=== PATIENT | male | born 1965 | race African-American/Black ===

== ENCOUNTER 2019-05-17 13:14 | Emergency (ER) | payer SELFPAY ==
[~2019-05-17] VITALS: Ht 170.2 cm; Wt 110.0 kg
[2019-05-17 15:44] VITALS: BP 154/96
== END 2019-05-17 18:39 | disposition home or self-care (01) ==
LOC: ER 13:14
DX: M25.531 Pain in right wrist (principal); I10 Essential (primary) hypertension; W22.8XXA Striking against or struck by other objects, initial encounter; Y93.89 Activity, other specified; Y92.89 Other specified places as the place of occurrence of the external cause
CPT/HCPCS: 73110; 99283

== ENCOUNTER 2021-11-15 09:13 | Emergency (ER) | payer MEDICAID ==
[~2021-11-15] VITALS: Ht 170.2 cm; Wt 105.0 kg
[2021-11-15 09:15] VITALS: BP 163/99
[2021-11-15] MEDS ORDERED: IBUPROFEN 600MG TABLET PO ONE (09:45)
== END 2021-11-15 10:36 | disposition home or self-care (01) ==
LOC: ER 09:13
DX: M25.512 Pain in left shoulder (principal); I49.8 Other specified cardiac arrhythmias; E11.9 Type 2 diabetes mellitus without complications; I10 Essential (primary) hypertension
CPT/HCPCS: 73030; 93005; 99283

== ENCOUNTER 2022-01-10 08:11 | Inpatient (IN) | payer MEDICAID ==
[~2022-01-10] VITALS: Ht 170.2 cm; Wt 115.0 kg
[2022-01-10] MEDS ORDERED: MORPHINE SULFATE 4 MG/ML CPJ (NOT FOR IM USE) IV STA (08:16)
[2022-01-10] MEDS ORDERED: ONDANSETRON HCL 4MG/2ML INJ IV ONE (08:30)
[2022-01-10] MEDS ORDERED: IOHEXOL-350 100 ML BOTTLE ONE (09:12)
[2022-01-10 09:13] LABS: BASOPHILS % 0.7 % (0.0-2.0); EOSINOPHILS % 11.2 % (0.0-5.0); HEMOGLOBIN. 13.7 g/dL (14.0-18.0); LYMPHOCYTES % 29.8 % (20.0-50.0); MEAN CORPUSCULAR HEMOGLOBIN 29.1 pg (28.0-32.0); MEAN CORPUSCULAR VOLUME 83.1 fL (80.0-94.0); MEAN PLATELET VOLUME 8.2 fl (7.4-10.4); MONOCYTES % 4.8 % (2.0-8.0); NEUTROPHILS % 53.5 % (40.0-76.0); PLATELET 226 x1000/uL (130-400); RED CELL DISTRIBUTION WIDTH 13.4 % (11.6-14.6)
[2022-01-10 09:21] LABS: CHLORIDE 104 mEq/L (98-107)
[2022-01-10] MEDS ORDERED: ASPIRIN 325MG EC TABLET PO ONE (11:45)
[2022-01-10] MEDS ORDERED: ENOXAPARIN 80MG/0.8ML SYR SUBCUT ONE (13:15)
[2022-01-10] MEDS ORDERED: ONDANSETRON HCL 4MG/2ML INJ IV PRN (13:30)
[2022-01-10] MEDS ORDERED: KETOROLAC 15MG/ML VIAL IV PRN (13:30)
[2022-01-10] MEDS ORDERED: IPRATROPIUM/ALBUTEROL 0.5-3(2.5)MG/3ML NEB NEB PRN (13:30)
[2022-01-10] MEDS ORDERED: DOCUSATE SODIUM 100MG CAPSULE PO PRN (13:30)
[2022-01-10] MEDS ORDERED: NITROGLYCERIN 0.4MG TABLET SL SL PRN (13:30)
[2022-01-10] MEDS ORDERED: MAGNESIUM/ALUMINUM HYDROXIDE/SIMETHICONE 30ML UDC PO PRN (13:30)
[2022-01-10] MEDS ORDERED: ACETAMINOPHEN 325MG TABLET PO PRN ×2 (13:30)
[2022-01-10] MEDS ORDERED: GUAIFENESIN 200MG/10ML SUGAR FREE UDC PO PRN (13:30)
[2022-01-10] MEDS ORDERED: ZOLPIDEM TARTRATE 5MG TABLET PO PRN (13:30)
[2022-01-10] MEDS ORDERED: CLONIDINE 0.1MG TABLET PO PRN (13:30)
[2022-01-10 14:21] LABS: CREATINE KINASE MB FRACTION 8.2 ng/mL (0.5-3.6)
[2022-01-10 14:27] LABS: ETHANOL BLOOD < 10 mg/dL; HDL CHOLESTEROL 30 mg/dL (40-59); LDL CHOLESTEROL 151 mg/dL (5-100)
[2022-01-10 14:50] LABS: FOLIC ACID (FOLATE) SERUM 13.8 ng/mL (>5.38)
[2022-01-10 14:55] LABS: TOTAL IRON BINDING CAPACITY 363 ug/dL (250-450)
[2022-01-10] MEDS ORDERED: NALOXONE HCL 0.4MG/ML VIAL IV PRN (15:30)
[2022-01-10] MEDS ORDERED: MORPHINE SULFATE 2 MG/ML CPJ (NOT FOR IM USE) IV PRN (15:30)
[2022-01-10 17:08] VITALS: BP 152/86
[2022-01-10 17:17] VITALS: BP 152/86
[2022-01-10 20:00] VITALS: BP 180/53
[2022-01-10 20:18] LABS: PARTIAL THROMBOPLASTIN TIME 32.6 sec (23.4-31.0); PROTHROMBIN TIME 10.9 sec (9.6-11.0)
[2022-01-10] MEDS ORDERED: HEPARIN 5000 UNITS/ML VIAL IV SCH (21:00)
[2022-01-10] MEDS ORDERED: HEPARIN 25,000 UNITS PREMIX 250 ML IV PRN (21:30)
[2022-01-10] MEDS: FAMOTIDINE 20MG TABLET PO SCH (21:57)
[2022-01-10] MEDS: ATORVASTATIN CALCIUM 40MG TABLET PO SCH (21:58)
[2022-01-10 22:00] VITALS: BP 124/76
[2022-01-10] MEDS: MORPHINE SULFATE 2 MG/ML CPJ (NOT FOR IM USE) IV PRN (22:31)
[2022-01-11] VITALS (19 sets, daily range): BP systolic 83–144; BP diastolic 32–94
[2022-01-11 02:39] LABS: CREATINE KINASE MB FRACTION 54.4 ng/mL (0.5-3.6)
[2022-01-11] MEDS: MORPHINE SULFATE 2 MG/ML CPJ (NOT FOR IM USE) IV PRN (02:58)
[2022-01-11] MEDS ORDERED: HEPARIN 5000 UNITS/ML VIAL IV PRN ×2 (03:00)
[2022-01-11] MEDS ORDERED: SODIUM CHLORIDE 0.9% 250 ML IV SCH (03:15)
[2022-01-11 07:01] LABS: BASOPHILS % 0.4 % (0.0-2.0); EOSINOPHILS % 2.3 % (0.0-5.0); HEMATOCRIT. 38.5 % (42.0-52.0); HEMOGLOBIN. 13.4 g/dL (14.0-18.0); LYMPHOCYTES % 12.2 % (20.0-50.0); MEAN CORPUSCULAR VOLUME 83.7 fL (80.0-94.0); MEAN PLATELET VOLUME 8.8 fl (7.4-10.4); MONOCYTES % 5.7 % (2.0-8.0); NEUTROPHILS % 79.4 % (40.0-76.0); PLATELET 258 x1000/uL (130-400); RED CELL DISTRIBUTION WIDTH 13.9 % (11.6-14.6)
[2022-01-11] MEDS ORDERED: IODIXANOL 320MG/ML 100 ML BOTTLE IV ONE ×2 (07:27→08:44)
[2022-01-11] MEDS ORDERED: LIDOCAINE HCL 1% 20ML VIAL (Pyxis) INJ ONE (07:28)
[2022-01-11] MEDS ORDERED: VERAPAMIL HCL 2.5 MG/1 ML 2ML VIAL IV ONE (07:28)
[2022-01-11] MEDS ORDERED: MIDAZOLAM HCL 2 MG/2 ML VIAL ONE (07:28)
[2022-01-11] MEDS ORDERED: FENTANYL CITRATE/PF 50MCG/ML 2ML VIAL ONE (07:28)
[2022-01-11] MEDS ORDERED: DIPHENHYDRAMINE 50MG/ML VIAL ONE (07:29)
[2022-01-11 07:34] LABS: CHLORIDE 107 mEq/L (98-107); PHOSPHORUS 3.1 mg/dL (2.5-4.9)
[2022-01-11] MEDS ORDERED: ATROPINE SULFATE 1MG/10ML SYR ONE (08:00)
[2022-01-11] MEDS ORDERED: IOHEXOL-300 100 ML BOTTLE ONE (08:51)
[2022-01-11] MEDS ORDERED: ENOXAPARIN 40MG/0.4ML SYR SUBCUT SCH (09:00)
[2022-01-11] MEDS ORDERED: ASPIRIN 325MG EC TABLET PO SCH (09:00)
[2022-01-11] MEDS ORDERED: ASPIRIN 81MG EC TABLET PO SCH (09:00)
[2022-01-11] MEDS ORDERED: CLOPIDOGREL 75MG TABLET ONE (09:04)
[2022-01-11] MEDS ORDERED: ASPIRIN 325MG TABLET ONE (09:04)
[2022-01-11] MEDS ORDERED: DEXTROSE 50% WATER 50ML SYRINGE IV PRN (09:30)
[2022-01-11] MEDS ORDERED: POTASSIUM CHLORIDE 20MEQ/PACKET PO NR (09:30)
[2022-01-11] MEDS ORDERED: HEPARIN SODIUM 1,000 UNIT/1ML VIAL IV ONE (09:41)
[2022-01-11] MEDS ORDERED: NITROGLYCERIN 50MCG/ML 10ML VIAL (CATH LAB) IV ONE (09:41)
[2022-01-11] MEDS ORDERED: NICARDIPINE 100MCG/ML 10ML VIAL (CATH LAB) IV ONE (09:41)
[2022-01-11] MEDS ORDERED: ATROPINE SULFATE 1MG/10ML SYR IV PRN (09:45)
[2022-01-11] MEDS: FAMOTIDINE 20MG TABLET PO SCH ×2 (10:08→21:16)
[2022-01-11] MEDS: SODIUM CHLORIDE 0.45% 500 ML IV SCH ×2 (10:10→16:25)
[2022-01-11] MEDS: INSULIN LISPRO 100 UNITS/ML SUBCUT SCH ×3 (12:38→21:00)
[2022-01-11] MEDS: BLOOD SUGAR DIAGNOSTIC STRIP TEST SCH ×3 (12:38→21:18)
[2022-01-11 19:03] LABS: *AMPHETAMINES SCREEN URINE NEGATIVE (NEGATIVE); *BARBITURATES SCREEN URINE NEGATIVE (NEGATIVE); *BENZODIAZEPINES SCREEN URINE PRESUMTIVE POSITIVE (NEGATIVE); *COCAINE SCREEN URINE NEGATIVE (NEGATIVE); CANNABINOID URINE SCREEN NEGATIVE (NEGATIVE); METHADONE URINE SCREEN NEGATIVE (NEGATIVE); OPIATES URINE SCREEN PRESUMTIVE POSITIVE (NEGATIVE); PHENCYCLIDINE URINE SCREEN NEGATIVE (NEGATIVE)
[2022-01-11] MEDS: ATORVASTATIN CALCIUM 40MG TABLET PO SCH (21:16)
[2022-01-11] MEDS ORDERED: SODIUM CHLORIDE 0.45% 500 ML IV SCH ×2 (23:45)
[2022-01-12] VITALS (9 sets, daily range): BP systolic 94–147; BP diastolic 39–88
[2022-01-12] MEDS ORDERED: SODIUM CHLORIDE 0.45% 500 ML IV ONE (00:15)
[2022-01-12] MEDS ORDERED: SODIUM CHLORIDE 0.45% 500 ML IV SCH (00:15)
[2022-01-12 05:50] LABS: BASOPHILS % 0.3 % (0.0-2.0); EOSINOPHILS % 2.6 % (0.0-5.0); HEMATOCRIT. 35.7 % (42.0-52.0); HEMOGLOBIN. 12.2 g/dL (14.0-18.0); LYMPHOCYTES % 22.5 % (20.0-50.0); MEAN CORPUSCULAR HEMOGLOBIN 28.5 pg (28.0-32.0); MEAN CORPUSCULAR VOLUME 83.5 fL (80.0-94.0); MEAN PLATELET VOLUME 8.9 fl (7.4-10.4); MONOCYTES % 7.6 % (2.0-8.0); PLATELET 230 x1000/uL (130-400); RED BLOOD CELL COUNT 4.28 mill/uL (4.7-6.1); RED CELL DISTRIBUTION WIDTH 13.9 % (11.6-14.6)
[2022-01-12 05:56] LABS: CHLORIDE 108 mEq/L (98-107)
[2022-01-12 06:01] LABS: PHOSPHORUS 3.2 mg/dL (2.5-4.9)
[2022-01-12] MEDS: BLOOD SUGAR DIAGNOSTIC STRIP TEST SCH ×2 (06:54→12:56)
[2022-01-12] MEDS: INSULIN LISPRO 100 UNITS/ML SUBCUT SCH ×2 (08:00→12:56)
[2022-01-12] MEDS: FAMOTIDINE 20MG TABLET PO SCH (08:50)
[2022-01-12] MEDS ORDERED: CLOPIDOGREL 75MG TABLET PO SCH (09:00)
[2022-01-12] MEDS ORDERED: ASPIRIN 81MG TABLET PO SCH (09:00)
[2022-01-12] MEDS ORDERED: POTASSIUM CHLORIDE 20MEQ/PACKET PO SCH (09:30)
[2022-01-12] MEDS ORDERED: KCL 20MEQ/100ML PREMIX 100 ML IV SCH (11:00)
== END 2022-01-12 15:31 | disposition home or self-care (01) | DRG 174 ==
LOC: ER 08:24 → 5EST 13:13 → EDBEDREQ 13:16 → ENRESERV 14:50
PROVIDERS: ADMIT Internal Medicine; ATTEND Internal Medicine
PROC: 027034Z Dilation of Coronary Artery, One Artery with Drug-eluting Intraluminal Device, Percutaneous Approach (ICD-10-PCS; principal; 2022-01-11)
PROC: B54BZZA Ultrasonography of Right Lower Extremity Veins, Guidance (ICD-10-PCS; 2022-01-11)
PROC: B41FYZZ Fluoroscopy of Right Lower Extremity Arteries using Other Contrast (ICD-10-PCS; 2022-01-11)
PROC: B211YZZ Fluoroscopy of Multiple Coronary Arteries using Other Contrast (ICD-10-PCS; 2022-01-11)
PROC: 4A023N7 Measurement of Cardiac Sampling and Pressure, Left Heart, Percutaneous Approach (ICD-10-PCS; 2022-01-11)
DX: I21.4 Non-ST elevation (NSTEMI) myocardial infarction (principal); N17.0 Acute kidney failure with tubular necrosis; E11.9 Type 2 diabetes mellitus without complications; E66.9 Obesity, unspecified; F17.210 Nicotine dependence, cigarettes, uncomplicated; I10 Essential (primary) hypertension; J44.9 Chronic obstructive pulmonary disease, unspecified; R00.1 Bradycardia, unspecified; Z20.822 Contact with and (suspected) exposure to COVID-19; E87.6 Hypokalemia; E78.5 Hyperlipidemia, unspecified; I25.10 Atherosclerotic heart disease of native coronary artery without angina pectoris; Z68.39 Body mass index [BMI] 39.0-39.9, adult; Q24.5 Malformation of coronary vessels
CPT/HCPCS: 36415; 71045; 71275; 74177; 80048; 80053; 80061; 80305; 80320; 82550; 82553; 82607; 82746; 82962; 83036; 83540; 83550; 83735; 83880; 84100; 84443; 84484; 85025; 85347; 87426; 92928; 93005; 93306; 93458; 93970; 99285; C1725; C1760; C1769; C1874; C1887; C1893; J0461; J1200; J1644; J1650; J1885; J2250; J2270; J2405; J3010; J3480; J3490; Q9967; G0480

== ENCOUNTER 2022-04-14 13:40 | Inpatient (IN) | payer MEDICAID ==
[~2022-04-14] VITALS: Ht 170.2 cm; Wt 96.6 kg
[2022-04-14 14:26] LABS: EOSINOPHILS % 12.2 % (0.0-5.0); HEMOGLOBIN. 13.5 g/dL (14.0-18.0); LYMPHOCYTES % 34.5 % (20.0-50.0); MEAN CORPUSCULAR HEMOGLOBIN 27.9 pg (28.0-32.0); MEAN CORPUSCULAR VOLUME 82.5 fL (80.0-94.0); MEAN PLATELET VOLUME 8.1 fl (7.4-10.4); MONOCYTES % 5.7 % (2.0-8.0); NEUTROPHILS % 46.6 % (40.0-76.0); PLATELET 265 x1000/uL (130-400); RED BLOOD CELL COUNT 4.86 mill/uL (4.7-6.1); RED CELL DISTRIBUTION WIDTH 14.4 % (11.6-14.6)
[2022-04-14 14:36] LABS: CHLORIDE 106 mEq/L (98-107)
[2022-04-14 14:45] LABS: ETHANOL BLOOD < 10 mg/dL
[2022-04-14] MEDS ORDERED: MORPHINE SULFATE 4 MG/ML CPJ (NOT FOR IM USE) IV NR (15:30)
[2022-04-14] MEDS ORDERED: ONDANSETRON HCL 4MG/2ML INJ IV NR (15:30)
[2022-04-14] MEDS ORDERED: ASPIRIN 325MG EC TABLET PO ONE (16:00)
[2022-04-14 17:25] LABS: *AMPHETAMINES SCREEN URINE NEGATIVE (NEGATIVE); *BARBITURATES SCREEN URINE NEGATIVE (NEGATIVE); *BENZODIAZEPINES SCREEN URINE NEGATIVE (NEGATIVE); *COCAINE SCREEN URINE NEGATIVE (NEGATIVE); CANNABINOID URINE SCREEN NEGATIVE (NEGATIVE); METHADONE URINE SCREEN NEGATIVE (NEGATIVE); OPIATES URINE SCREEN PRESUMTIVE POSITIVE (NEGATIVE); PHENCYCLIDINE URINE SCREEN NEGATIVE (NEGATIVE)
[2022-04-14] MEDS ORDERED: MORPHINE SULFATE 4 MG/ML CPJ (NOT FOR IM USE) IV ONE (19:45)
[2022-04-14] MEDS ORDERED: AMLODIPINE 10MG TABLET PO ONE (20:30)
[2022-04-14] MEDS ORDERED: ENOXAPARIN 40MG/0.4ML SYR SUBCUT NR (23:30)
[2022-04-14] MEDS ORDERED: ASPIRIN 81MG TABLET PO SCH (23:30)
[2022-04-14] MEDS ORDERED: METOPROLOL SUCCINATE 50MG ER TABLET PO SCH (23:30)
[2022-04-14] MEDS ORDERED: HYDROCODONE/ACETAMINOPHEN 5/325MG TABLET PO PRN (23:35)
[2022-04-14] MEDS ORDERED: NITROGLYCERIN 0.4MG TABLET SL SL PRN (23:39)
[2022-04-14] MEDS ORDERED: CLONIDINE 0.1MG TABLET PO PRN (23:39)
[2022-04-14] MEDS ORDERED: METOPROLOL TARTRATE 50MG TABLET PO SCH (23:41)
[2022-04-14 23:47] VITALS: BP 222/113
[2022-04-14] MEDS: HYDROCODONE/ACETAMINOPHEN 10/325MG TABLET PO PRN (23:47)
[2022-04-14] MEDS: LISINOPRIL 20MG TABLET PO SCH (23:53)
[2022-04-15] VITALS (9 sets, daily range): BP systolic 99–222; BP diastolic 56–158
[2022-04-15] MEDS: ASPIRIN 81MG TABLET PO SCH ×2 (00:05→08:02)
[2022-04-15] MEDS: HYDROCODONE/ACETAMINOPHEN 10/325MG TABLET PO PRN ×2 (08:02→21:12)
[2022-04-15] MEDS: LISINOPRIL 20MG TABLET PO SCH (08:02)
[2022-04-15] MEDS ORDERED: DEXTROSE 50% WATER 50ML SYRINGE IV PRN ×2 (10:15)
[2022-04-15] MEDS ORDERED: ACETAMINOPHEN 325MG TABLET PO PRN (10:15)
[2022-04-15] MEDS ORDERED: MAGNESIUM/ALUMINUM HYDROXIDE/SIMETHICONE 30ML UDC PO PRN (10:15)
[2022-04-15] MEDS ORDERED: ONDANSETRON HCL 4MG/2ML INJ IV PRN (10:15)
[2022-04-15] MEDS: ENOXAPARIN 30MG/0.3ML SYR SUBCUT SCH ×2 (10:29→21:13)
[2022-04-15] MEDS ORDERED: NALOXONE HCL 0.4MG/ML VIAL IV PRN (10:30)
[2022-04-15] MEDS: CLOPIDOGREL 75MG TABLET PO SCH (11:18)
[2022-04-15] MEDS: BLOOD SUGAR DIAGNOSTIC STRIP TEST SCH ×3 (12:20→21:00)
[2022-04-15] MEDS: INSULIN LISPRO 100 UNITS/ML SUBCUT SCH ×3 (12:50→21:00)
[2022-04-15 16:38] LABS: CREATINE KINASE MB FRACTION 1.4 ng/mL (0.5-3.6)
[2022-04-15] MEDS: ATORVASTATIN CALCIUM 40MG TABLET PO SCH (21:10)
[2022-04-15 23:19] LABS: CREATINE KINASE MB FRACTION 1.5 ng/mL (0.5-3.6)
[2022-04-16] VITALS (7 sets, daily range): BP systolic 144–171; BP diastolic 68–97
[2022-04-16] MEDS: HYDROCODONE/ACETAMINOPHEN 10/325MG TABLET PO PRN ×4 (04:34→21:03)
[2022-04-16] MEDS: BLOOD SUGAR DIAGNOSTIC STRIP TEST SCH ×4 (07:20→21:11)
[2022-04-16 07:30] LABS: HEMATOCRIT. 39.2 % (42.0-52.0); HEMOGLOBIN. 13.4 g/dL (14.0-18.0); MEAN CORPUSCULAR HEMOGLOBIN 28.2 pg (28.0-32.0); MEAN CORPUSCULAR VOLUME 82.7 fL (80.0-94.0); MEAN PLATELET VOLUME 8.4 fl (7.4-10.4); PLATELET 247 x1000/uL (130-400); RED BLOOD CELL COUNT 4.74 mill/uL (4.7-6.1); RED CELL DISTRIBUTION WIDTH 14.4 % (11.6-14.6)
[2022-04-16] MEDS: INSULIN LISPRO 100 UNITS/ML SUBCUT SCH ×4 (07:50→21:00)
[2022-04-16] MEDS: LISINOPRIL 20MG TABLET PO SCH (09:00)
[2022-04-16] MEDS: ASPIRIN 81MG TABLET PO SCH (09:18)
[2022-04-16] MEDS: CLOPIDOGREL 75MG TABLET PO SCH (09:18)
[2022-04-16] MEDS: ENOXAPARIN 30MG/0.3ML SYR SUBCUT SCH ×2 (09:20→21:04)
[2022-04-16 09:37] LABS: CHLORIDE 103 mEq/L (98-107)
[2022-04-16 09:51] LABS: HDL CHOLESTEROL 27 mg/dL (40-59); LDL CHOLESTEROL 142 mg/dL (5-100); PHOSPHORUS 3.7 mg/dL (2.5-4.9); T4 FREE 0.95 ng/dL (0.76-1.46)
[2022-04-16] MEDS ORDERED: IODIXANOL 320MG/ML 100 ML BOTTLE IV ONE ×2 (10:03→11:43)
[2022-04-16 10:09] LABS: CREATINE KINASE MB FRACTION 1.1 ng/mL (0.5-3.6)
[2022-04-16] MEDS ORDERED: MIDAZOLAM HCL 2 MG/2 ML VIAL ONE (10:31)
[2022-04-16] MEDS ORDERED: FENTANYL CITRATE/PF 50MCG/ML 2ML VIAL ONE (10:31)
[2022-04-16] MEDS ORDERED: HEPARIN 1000 UNITS/ML 10ML ONE (10:32)
[2022-04-16] MEDS ORDERED: DIPHENHYDRAMINE 50MG/ML VIAL ONE (10:34)
[2022-04-16] MEDS ORDERED: VERAPAMIL HCL 2.5 MG/1 ML 2ML VIAL IV ONE (10:35)
[2022-04-16] MEDS ORDERED: LIDOCAINE HCL/PF 1% 10 MG/ML 5ML VIAL ONE (10:35)
[2022-04-16] MEDS ORDERED: HYDRALAZINE 20MG/ML VIAL ONE (11:46)
[2022-04-16] MEDS ORDERED: ATROPINE SULFATE 1MG/10ML SYR IV PRN (12:00)
[2022-04-16] MEDS: AMLODIPINE 10MG TABLET PO SCH (17:29)
[2022-04-16] MEDS: LIDOCAINE 5% PATCH TOP SCH (17:34)
[2022-04-16] MEDS ORDERED: POTASSIUM CHLORIDE 20MEQ TABLET SR PO NR (21:00)
[2022-04-16] MEDS: ATORVASTATIN CALCIUM 40MG TABLET PO SCH (21:03)
[2022-04-16 21:19] LABS: PLATELET ESTIMATE NORMAL
[2022-04-17] VITALS: BP 140/65
[2022-04-17 04:00] VITALS: BP 155/85
[2022-04-17] MEDS: INSULIN LISPRO 100 UNITS/ML SUBCUT SCH ×2 (06:28→12:50)
[2022-04-17] MEDS: BLOOD SUGAR DIAGNOSTIC STRIP TEST SCH ×2 (06:28→12:20)
[2022-04-17 06:49] LABS: BASOPHILS % 0.5 % (0.0-2.0); EOSINOPHILS % 8.9 % (0.0-5.0); HEMATOCRIT. 38.1 % (42.0-52.0); HEMOGLOBIN. 13.1 g/dL (14.0-18.0); LYMPHOCYTES % 19.2 % (20.0-50.0); MEAN CORPUSCULAR HEMOGLOBIN 28.2 pg (28.0-32.0); MEAN CORPUSCULAR VOLUME 82.1 fL (80.0-94.0); MEAN PLATELET VOLUME 8.4 fl (7.4-10.4); MONOCYTES % 14.9 % (2.0-8.0); NEUTROPHILS % 56.5 % (40.0-76.0); PLATELET 221 x1000/uL (130-400); RED BLOOD CELL COUNT 4.64 mill/uL (4.7-6.1)
[2022-04-17 07:10] LABS: CHLORIDE 108 mEq/L (98-107)
[2022-04-17 08:00] VITALS: BP 172/85
[2022-04-17] MEDS ORDERED: ISOSORBIDE MONONITRATE 30MG TABLET SR 24HR PO SCH (09:00)
[2022-04-17] MEDS: ASPIRIN 81MG TABLET PO SCH (09:02)
[2022-04-17] MEDS: LISINOPRIL 20MG TABLET PO SCH (09:02)
[2022-04-17] MEDS: ENOXAPARIN 30MG/0.3ML SYR SUBCUT SCH (09:03)
[2022-04-17] MEDS: AMLODIPINE 10MG TABLET PO SCH (09:03)
[2022-04-17] MEDS: CLOPIDOGREL 75MG TABLET PO SCH (09:03)
[2022-04-17] MEDS: LIDOCAINE 5% PATCH TOP SCH (09:31)
[2022-04-17] MEDS ORDERED: ASPI-1160 PO (11:27)
[2022-04-17] MEDS ORDERED: LISI20TA31 PO (11:27)
[2022-04-17] MEDS ORDERED: CLOP75TA15 PO (11:27)
[2022-04-17] MEDS ORDERED: MED4 MT (11:27)
[2022-04-17] MEDS ORDERED: ISOS30TA91 PO (11:27)
[2022-04-17] MEDS ORDERED: AMLO10TA80 PO (11:27)
[2022-04-17] MEDS ORDERED: LIP40 PO (11:27)
[2022-04-17 12:00] VITALS: BP 152/68
[2022-04-17] MEDS: HYDROCODONE/ACETAMINOPHEN 10/325MG TABLET PO PRN (12:42)
[2022-04-17 12:55] VITALS: BP 151/63
== END 2022-04-17 13:30 | disposition home or self-care (01) | DRG 191 ==
LOC: ER 13:48 → 6WST 16:02 → ENRESERV 19:57
PROVIDERS: ADMIT Internal Medicine; ATTEND Internal Medicine
PROC: 4A023N7 Measurement of Cardiac Sampling and Pressure, Left Heart, Percutaneous Approach (ICD-10-PCS; principal; 2022-04-16)
PROC: B211YZZ Fluoroscopy of Multiple Coronary Arteries using Other Contrast (ICD-10-PCS; 2022-04-16)
PROC: B215YZZ Fluoroscopy of Left Heart using Other Contrast (ICD-10-PCS; 2022-04-16)
PROC: B41FYZZ Fluoroscopy of Right Lower Extremity Arteries using Other Contrast (ICD-10-PCS; 2022-04-16)
DX: I25.110 Atherosclerotic heart disease of native coronary artery with unstable angina pectoris (principal); E11.9 Type 2 diabetes mellitus without complications; R07.89 Other chest pain; I16.0 Hypertensive urgency; E78.00 Pure hypercholesterolemia, unspecified; I10 Essential (primary) hypertension; E87.6 Hypokalemia; E78.5 Hyperlipidemia, unspecified; E66.9 Obesity, unspecified; F17.210 Nicotine dependence, cigarettes, uncomplicated; Z20.822 Contact with and (suspected) exposure to COVID-19; I25.2 Old myocardial infarction; Z68.33 Body mass index [BMI] 33.0-33.9, adult; Z91.14 Patient's other noncompliance with medication regimen; Z95.5 Presence of coronary angioplasty implant and graft; Z83.3 Family history of diabetes mellitus; Z82.49 Family history of ischemic heart disease and other diseases of the circulatory system
CPT/HCPCS: 36415; 71045; 73050; 80048; 80053; 80061; 80076; 80305; 80320; 82553; 82962; 83036; 83735; 83880; 84100; 84439; 84484; 85025; 85347; 87426; 93005; 93306; 93458; 93970; 99285; C1760; C1769; C1887; C1893; C1894; C9803; J0360; J1200; J1644; J1650; J2250; J2270; J2405; J3010; J3490; Q9967; G0480